=== PATIENT | female | born 1960 | race American Indian/Alaskan Native ===

== ENCOUNTER 2018-02-02 18:48 | Emergency (ER) | payer OTHER ==
[2018-02-02] MEDS ORDERED: FIORICET PO ONE (20:31)
[2018-02-02] MEDS ORDERED: KEPPRA 1,000 MG/NS 0.75% 100ML 1,000 MG/100 ML BAG IV ONE (20:31)
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
[2018-02-02 21:13] LABS: Basophils % (Auto) 0.6 % (0.0-1.8); Eosinophils # (Auto) 0.2 K/mm3 (0.0-0.4); Eosinophils % (Auto) 3.4 % (0.0-4.3); Hematocrit 38.4 % (30.3-42.9); Hemoglobin 12.8 gm/dl (10.1-14.3); Lymphocytes # (Auto) 1.6 K/mm3 (1.2-5.4); Lymphocytes % (Auto) 29.3 % (13.4-35.0); Mean Corpuscular HGB Conc 33 % (30-34); Mean Corpuscular Hemoglobin 29 pg (28-32); Mean Corpuscular Volume 88 fl (79-97); Monocytes # (Auto) 0.4 K/mm3 (0.0-0.8); Monocytes % (Auto) 8.1 % (0.0-7.3); Platelet Count 210 K/mm3 (140-440); Red Blood Count 4.36 M/mm3 (3.65-5.03); Red Cell Distribution Width 14.7 % (13.2-15.2)
[2018-02-02 21:31] LABS: Creatine Kinase MB 3.4 ng/mL (0.0-4.0)
[2018-02-02 21:33] LABS: BUN/Creatinine Ratio 13; Blood Urea Nitrogen 13 mg/dL (7-17); Calcium 9.1 mg/dL (8.4-10.2); Hemolysis Index 16
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
[2018-02-02 22:16] VITALS: BP 163/89
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
== END 2018-02-02 23:33 | disposition home or self-care (01) ==
LOC: ED 18:48
DX: S20.219A Contusion of unspecified front wall of thorax, initial encounter (principal); S00.83XA Contusion of other part of head, initial encounter; I10 Essential (primary) hypertension; S09.90XA Unspecified injury of head, initial encounter; I25.2 Old myocardial infarction; V49.49XA Driver injured in collision with other motor vehicles in traffic accident, initial encounter; Y93.89 Activity, other specified; Y92.89 Other specified places as the place of occurrence of the external cause; Y99.8 Other external cause status
CPT/HCPCS: 36415; 70450; 70486; 71275; 72125; 80048; 82550; 82553; 84484; 85025; 93005; 93010; 96374; 99284; J1953; Q9967

== ENCOUNTER 2021-05-24 11:27 | Inpatient (IN) | payer SELFPAY ==
--- NOTE | 2021-05-24 11:43 | Emergency Department Report ---
ED Neuro Deficit HPI - General Chief Complaint: Neuro Symptoms/Deficit Stated Complaint: RIGHT SIDED WEAKNESS Time Seen by Provider: 05/24/21 11:31 Source: EMS Mode of arrival: Stretcher Limitations: Other (aphasia) - History of Present Illness Initial Comments: Chief complaint: Possible stroke HPI: This is a 61-year-old female with history of CVA, hypertension, coronary artery disease, brain tumor resection 2009, seizure disorder who presents with r ight-sided weakness and aphasia. At 9:45 AM her daughter heard her fall. Daughter called 911. Patient is aphasic at this time. She takes Plavix. Daughter friend Aleena Lowery [phone] gave additional information. Prior to patient's arrival to ED, she called out to her daughter saying "I think I am having a stroke". Daughter called 911 immediately. Patient did not have a seizure prior to arrival according to daughter's report. Patient had stroke 10 years ago. -: Sudden, This morning (944) Location: speech, right arm, right leg Presenting Symptoms: Present: Weak/Paralyzed One Side History of same: No Place: home Severity: severe Quality: weak Improves With: none Worsens With: none On Anticoagulants: No Context: sudden onset Treatments Prior to Arrival: other (EMS arrival) - Related Data Home Medications: Home Medications Medication Instructions Recorded Confirmed Last Taken Atorvastatin [Lipitor] 40 mg PO DAILY 06/27/13 09/04/13 06/26/13 08:00 Clopidogrel [Plavix] 75 mg PO DAILY 06/27/13 09/04/13 06/26/13 08:00 Metoprolol [Lopressor TAB] 25 mg PO DAILY 06/27/13 09/04/13 06/26/13 08:00 lamoTRIgine [LaMICtal] 100 mg PO BID 06/27/13 09/04/13 06/26/13 21:00 levETIRAcetam [Keppra TAB] 1,500 mg PO BID 06/27/13 09/04/13 06/27/13 08:00 Aspirin [Aspirin BABY CHEW TAB] 81 mg PO QDAY 09/04/13 09/04/13 09/03/13 Previous Rx's Medication Instructions Recorded Last Taken Type HYDROcodone/APAP 5-325 [[place] 5 mg PO 4XD PRN #20 tablet 09/05/13 Unknown Rx 5-325 mg TAB] hydrALAZINE [Apresoline TAB] 50 mg PO TID #30 tablet 09/05/13 Unknown Rx lisinopriL [Zestril TAB] 5 mg PO QDAY #30 tablet 09/05/13 Unknown Rx lisinopriL [Zestril TAB] 5 mg PO QDAY #30 tablet 09/05/13 Unknown Rx Cyclobenzaprine [Flexeril] 10 mg PO TID PRN #14 tablet 02/02/18 Unknown Rx HYDROcodone/APAP 5-325 [[place] 1 - 2 each PO Q6HR PRN #10 tablet 02/02/18 Unknown Rx 5/325] Ibuprofen [Motrin 800 MG tab] 800 mg PO Q8HR PRN #20 tablet 02/02/18 Unknown Rx Allergies/Adverse Reactions: Allergies Allergy/AdvReac Type Severity Reaction Status Date / Time latex Allergy Rash Verified 09/04/13 07:35 ED Review of Systems ROS: Stated complaint: RIGHT SIDED WEAKNESS Other details as noted in HPI Comment: Unobtainable due to pts medical conditions (Aphasia) ED Past Medical Hx - Past Medical History Previous Medical History?: Yes Hx Hypertension: Yes Hx Heart Attack/AMI: Yes Hx Seizures: Yes Additional medical history: 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 defibrillator Left clavicle - Social History Smoking Status: Never Smoker Substance Use Type: None - Medications Home Medications: Home Medications Medication Instructions Recorded Confirmed Last Taken Type Atorvastatin [Lipitor] 40 mg PO DAILY 06/27/13 09/04/13 06/26/13 08:00 History Clopidogrel [Plavix] 75 mg PO DAILY 06/27/13 09/04/13 06/26/13 08:00 History Metoprolol [Lopressor TAB] 25 mg PO DAILY 06/27/13 09/04/13 06/26/13 08:00 History lamoTRIgine [LaMICtal] 100 mg PO BID 06/27/13 09/04/13 06/26/13 21:00 History levETIRAcetam [Keppra TAB] 1,500 mg PO BID 02/08/0509/04/13 06/27/13 08:00 History Aspirin [Aspirin BABY CHEW TAB] 81 mg PO QDAY 09/04/13 09/04/13 09/03/13 History HYDROcodone/APAP 5-325 [[place] 5 mg PO 4XD PRN #20 tablet 09/05/13 Unknown Rx 5-325 mg TAB] hydrALAZINE [Apresoline TAB] 50 mg PO TID #30 tablet 09/05/13 Unknown Rx lisinopriL [Zestril TAB] 5 mg PO QDAY #30 tablet 09/05/13 Unknown Rx lisinopriL [Zestril TAB] 5 mg PO QDAY #30 tablet 09/05/13 Unknown Rx Cyclobenzaprine [Flexeril] 10 mg PO TID PRN #14 tablet 02/02/18 Unknown Rx HYDROcodone/APAP 5-325 [[place] 1 - 2 each PO Q6HR PRN #10 tablet 02/02/18 Unknown Rx 5/325] Ibuprofen [Motrin 800 MG tab] 800 mg PO Q8HR PRN #20 tablet 02/02/18 Unknown Rx ED Neuro Physical Exam - General Limitations: Other (Aphasia) General appearance: alert, in no apparent distress Suspected Stroke: Yes - Head Head exam: Present: atraumatic, normocephalic - Eye Eye exam: Present: normal appearance - ENT ENT exam: Present: mucous membranes moist - Neck Neck exam: Present: normal inspection, full ROM - Respiratory Respiratory exam: Present: normal lung sounds bilaterally. Absent: respiratory distress, wheezes, rales - Cardiovascular Cardiovascular Exam: Present: regular rate, normal rhythm, normal heart sounds. Absent: systolic murmur, diastolic murmur, rubs, gallop - GI/Abdominal GI/Abdominal exam: Present: soft, normal bowel sounds. Absent: distended, tenderness, guarding, rebound - Extremities Exam Extremities exam: Present: normal inspection - Back Exam Back exam: Present: normal inspection - Neurological Exam Neurological exam: Present: alert, other (Aphasic) - NIHSS Assessment Interval: Baseline 1a. Level of Consciousness: arousable/minor stimuli 1b. LOC Questions: aphasic 1c. LOC Commands: performs tasks correctly 2. Best Gaze: normal 3. Visual: no visual loss 4. Facial Palsy: partial paralysis 5b. Motor Arm Right: no gravity effort 5a. Motor Arm Left: no drift 6a. Motor Leg Left: no drift 6b. Motor Leg Right: no gravity effort 7. Limb Ataxia: absent 8. Sensory: normal 9. Best Language: mute/global aphasia 10. Dysarthria: mute/anarrthric 11. Extinction/Inattention: no abnormality Total Score: 16 Stroke Severity: Moderate to Severe Stroke - Psychiatric Psychiatric exam: Present: flat affect - Skin Skin exam: Present: warm, dry, intact, normal color. Absent: rash ED Course Vital Signs 05/24/21 05/24/21 05/24/21 11:30 12:34 12:44 Temperature 98.8 F Pulse Rate 81 77 Pulse Rate [ 85 Right Arm] Respiratory 18 19 Rate Respiratory 16 Rate [Right Arm ] Blood Pressure 158/86 Blood Pressure 153/88 [Left] Blood Pressure 153/88 [Right Arm] O2 Sat by Pulse 98 93 Oximetry O2 Sat by Pulse 96 Oximetry [ Right Arm] 05/24/21 05/24/21 05/24/21 12:46 12:50 13:00 Temperature Pulse Rate 77 76 Pulse Rate [ 77 Right Arm] Respiratory 16 17 Rate Respiratory 16 Rate [Right Arm ] Blood Pressure 158/86 142/81 Blood Pressure [Left] Blood Pressure 155/104 [Right Arm] O2 Sat by Pulse 94 92 Oximetry O2 Sat by Pulse 92 Oximetry [ Right Arm] 05/24/21 05/24/21 05/24/21 13:04 13:16 13:30 Temperature Pulse Rate 70 70 Pulse Rate [ 80 Right Arm] Respiratory 15 22 Rate Respiratory 15 Rate [Right Arm ] Blood Pressure 62/31 75/39 Blood Pressure [Left] Blood Pressure 139/73 [Right Arm] O2 Sat by Pulse 96 98 Oximetry O2 Sat by Pulse 95 Oximetry [ Right Arm] 05/24/21 05/24/21 13:54 14:00 Temperature Pulse Rate 101 H 72 Pulse Rate [ 68 Right Arm] Respiratory 10 L Rate Respiratory 14 Rate [Right Arm ] Blood Pressure 133/74 128/76 Blood Pressure [Left] Blood Pressure 133/74 [Right Arm] O2 Sat by Pulse 99 Oximetry O2 Sat by Pulse 94 Oximetry [ Right Arm] - Reevaluation(s) Reevaluation #1: 05/24/21 12:48 I ordered TPA after receiving results of CT head revealing acute ischemia in the parietal lobe. Patient consented to the medication. I spoke in person with Aleena Lowery who consented to TPA. Daughter works for neurologist. She is well aware of the effects and risks of this medication. Reevaluation #2: 05/24/21 13:45 Profound hypotension during TPA administration. 70% of dose received. Patient did not have GI bleeding evident. Blood pressure improved after IVF NS bolus. CT head stat no obvious bleeding. On my examination. Reevaluation #3: 05/24/21 13:57 BP 133/84, patient is drowsy but arousable answering questions. - Consultations Consultation #1: 05/24/21 11:43 Has had extensive discussion with Dr. Galicia teleneurologist. Alonzo's paralysis is a consideration. tPA will be held until CT angiogram results are available. If there is no occlusion seen on CTA will treat patient for Alonzo's paralysis in lieu of acute CVA 05/24/21 11:44 - EJ/Peripheral Line Arm R Time Out Performed: Yes Indications: multiple IV sites needed, other (Antecubitus IV needed for CT angiogram emergently) Skin Cleansed in Sterile Fashion: Yes Size: 20 Dressing Placed: Tegaderm Patient Tolerated Procedure: well - Lab Data Result diagrams: 05/24/21 11:43 05/24/21 11:43 Lab Results 05/24/21 05/24/21 05/24/21 Range/Units 11:43 11:43 11:43 WBC 6.3 (4.5-11.0) K/mm3 RBC 4.59 (3.65-5.03) M/mm3 Hgb 13.1 (10.1-14.3) gm/dl Hct 40.5 (30.3-42.9) % MCV 88 (79-97) fl MCH 29 (28-32) pg MCHC 33 (30-34) % RDW 14.6 (13.2-15.2) % Plt Count 229 (140-440) K/mm3 Lymph % (Auto) 32.2 (13.4-35.0) % Evans % (Auto) 8.1 H (0.0-7.3) % Eos % (Auto) 2.1 (0.0-4.3) % Baso % (Auto) 0.5 (0.0-1.8) % Lymph # (Auto) 2.0 (1.2-5.4) K/mm3 Evans # (Auto) 0.5 (0.0-0.8) K/mm3 Eos # (Auto) 0.1 (0.0-0.4) K/mm3 Baso # (Auto) 0.0 (0.0-0.1) K/mm3 Seg Neutrophils % 57.1 (40.0-70.0) % Seg Neutrophils # 3.6 (1.8-7.7) K/mm3 PT 13.8 (12.2-14.9) Sec. INR 0.96 (0.87-1.13) APTT 28.6 (24.2-36.6) Sec. Thrombin Time 14.7 L (15.1-19.6) Sec. Sodium 135 L (137-145) mmol/L Potassium 3.6 (3.6-5.0) mmol/L Chloride 98.6 (98-107) mmol/L Carbon Dioxide 23 (22-30) mmol/L Anion Gap 17 mmol/L BUN 14 (7-17) mg/dL Creatinine 1.0 (0.6-1.2) mg/dL Estimated GFR > 60 ml/min BUN/Creatinine Ratio 14 % Glucose 125 H (65-100) mg/dL Calcium 9.8 (8.4-10.2) mg/dL Total Bilirubin 0.70 (0.1-1.2) mg/dL AST 18 (5-40) units/L ALT 40 (7-56) units/L Alkaline Phosphatase 103 (35-129) units/L Troponin T < 0.010 (0.00-0.029) ng/mL Total Protein 7.2 (6.3-8.2) g/dL Albumin 4.0 (3.9-5) g/dL Albumin/Globulin Ratio 1.3 % - EKG Data -: EKG Interpreted by Mn EKG shows normal: sinus rhythm, axis, intervals Rate: normal 05/24/21 14:12 EKG obtained 1350 NSR rate 70 bpm nl axis no ST elevation nonspecific T wave pattern - Radiology Data Radiology results: report reviewed Patient Name: ANA LOWERY Gender: Female Date of : 1960 Referring Provider: GAIL CRAFT Organization: [facility] Accession Number: [id number] Requested Date: May 24, 2021 11:31 Report Status: Final Requested Procedure: 1 Procedure Description: CT head/brain wo con Modality: CT Findings Reporting MD: Jorge More Dictation Time: May 24, 2021 10:56 Crew Clerk: Not available Search Developer Date: CT HEAD WITHOUT CONTRAST INDICATION / CLINICAL INFORMATION: CODE STROKE CALL REPORT [phone], LKW [id number], right side weakness, slurred speech, Hx of brain tumor. TECHNIQUE: All CT scans at this location are performed using CT dose reduction for ALARA by means of automated exposure control. COMPARISON: None available. FINDINGS: There is diffuse low attenuation within the left posterior parietal lobe low- attenuation suggesting possible stroke. No midline shift or mass effect. No acute hemorrhage is seen. Ventricles are normal in size. ADDITIONAL FINDINGS: None. IMPRESSION: 1. Diffuse low attenuation within left posterior parietal lobe suggesting acute ischemic change/stroke. CODE STROKE: Time of Communication (ELECTRONIC MAINTENANCE SUPERVISOR/CDT): 1055 Licensed Practitioner Receiving Report: Signer Name: Jorge More MD Signed: 05/24/2021 10:56 AM Workstation Name: [email or web address] [id number] Patient Name: ANA LOWERY Gender: Female Date of : 1960 Referring Provider: GAIL CRAFT Organization: [facility] Accession Number: [id number] Requested Date: May 24, 2021 11:31 Report Status: Final Requested Procedure: 1 Procedure Description: CT angio neck Modality: CT Findings Reporting MD: Tavo Morris Dictation Time: May 24, 2021 12:25 Crew Clerk: Not available Search Developer Date: CTA NECK WITH CONTRAST 05/24/2021 INDICATION / CLINICAL INFORMATION: stroke sx hx of brain tumor omni 350 100ml . COMPARISON: None. TECHNIQUE: Routine CTA of the neck is performed. 3-D/MIP reformats were postpr ocessed. Percentage stenosis is determined by direct quantitative measurements of diseased internal carotid artery diameter compared with normal distal internal carotid artery reference segments or by criteria similar to NASCET where applicable. All CT scans at this location are performed using CT dose reduction for ALARA by means of automated exposure control. CONTRAST: 100 ml of Omnipaque 350 FINDINGS: Carotid bifurcations: There is no evidence of carotid bifurcation stenosis Carotid arteries: No significant abnormality. Cervical vertebral arteries: No significant abnormality. Aortic arch: No significant abnormality. None. IMPRESSION: No significant abnormality. Signer Name: Tavo Morris MD Signed: 05/24/2021 12:25 PM Workstation Name: [id number] Patient Name: ANA LOWERY Gender: Female Date of : 1960 Referring Provider: GAIL CRAFT Organization: [facility] Accession Number: [id number] Requested Date: May 24, 2021 11:31 Report Status: Final Requested Procedure: 1 Procedure Description: CT angio head Modality: CT Findings Reporting MD: Tavo Morris Dictation Time: May 24, 2021 12:28 Crew Clerk: Not available Search Developer Date: CTA HEAD WITH CONTRAST 05/24/2021 HISTORY: stroke sx hx of brain tumor omni 350 100ml . COMPARISON: None. TECHNIQUE: All CT scans at this location are performed using CT dose reduction for ALARA by means of automated exposure control.. 3-D/MIP reformats postprocessed. Percentage stenosis is determined by direct quantitative measurements of diseased internal carotid artery diameter compared with normal distal internal carotid artery reference segments or by criteria similar to NASCET where applicable. CONTRAST: 100 ml of Omnipaque 350 FINDINGS: CTA HEAD: Intracranial vertebral arteries: No significant abnormality. Basilar artery: No significant abnormality. Posterior cerebral arteries: No significant abnormality. Intracranial internal carotid arteries: No significant abnormality. Anterior cerebral arteries: No significant abnormality. Middle cerebral arteries: No significant abnormality. Dural venous sinuses:Not optimally opacified. No significant abnormality. Additional findings: The patient is noted to have a left parietal craniotomy defect, with underlying cortical and subcortical encephalomalacia, presumably related to prior surgery and underlying abnormality. Appearance of the left parietal lobe is not changed when compared to an older exam from 02/02/2018. IMPRESSION: 1. No significant abnormality. Signer Name: Tavo Morris MD Signed: 05/24/2021 12:28 PM Workstation Name: [id number] Patient Name: ANA LOWERY Gender: Female Date of : 1960 Referring Provider: GAIL CRAFT Organization: [facility] Accession Number: [id number] Requested Date: May 24, 2021 13:35 Report Status: Final Requested Procedure: 1 Procedure Description: CT head/brain wo con Modality: CT Findings Reporting MD: Jorge More Dictation Time: May 24, 2021 12:55 Crew Clerk: Not available Search Developer Date: CT HEAD WITHOUT CONTRAST INDICATION / CLINICAL INFORMATION: tpa hypotension. TECHNIQUE: All CT scans at this location are performed using CT dose reduction for ALARA by means of automated exposure control. COMPARISON: None available. FINDINGS: There is a low-attenuation in the left parietal lobe could represent an infarct, uncertain age. No new change since prior examination. The vessels are still attenuated from recent contrast administration. No definite hemorrhage or midline shift is seen at this time. ADDITIONAL FINDINGS: None. IMPRESSION: 1. Area of low attenuation within left parietal lobe is again noted could represent ischemic given patient's symptoms. No acute hemorrhage is definitely seen. Signer Name: Jorge More MD Signed: 05/24/2021 12:55 PM Workstation Name: [id number] - Medical Decision Making 1. Acute CVA vs Alonzo's Paralysis. I discussed TPA with Dr. Galicia. Initially considered a candidate for TPA. Concern for seizure with limited hx. With daughter reporting no seizure, with patient's history and CT findings, Patient and daughter agreed for TPA therapy considering additional hx and presentation. Patient developed hypotension during TPA administration. . BP improved with NS IVF one liter. No angioedema. No urticaria. No rectal bleeding. 2. Acute Coronary Syndrome 30 minutes after hypotensive episode. Hx of CAD, EKG without ST elevation Patient admitted to ICU in fair condition - Thrombolytic Inclusion/Exclusion Thrombolytic Inclusion Criteria: Ischemic Stroke Onset< 3h, NIH Stroke Scale Def icit, Negative CT Scan for ICH, Age 18 or Older, Glucose of 50-400mg/dl Critical Care Time: Yes Critical care time in (mins) excluding proc time.: 100 Critical care attestation.: If time is entered above; I have spent that time in minutes in the direct care of this critically ill patient, excluding procedure time. 100 minutes of critical care time excluding procedures were used in the care of the patient. I came immediately to the bedside upon patient's arrival. I obtained history from EMS at the bedside. I discussed treatment plan with the nursing team members. I reviewed electronic record. I kept the family members informed. Patient required multiple interventions and reassessments. ED Disposition Clinical Impression: Acute CVA (cerebrovascular accident), Received intravenous tissue plasminogen activator (tPA) in emergency department Disposition: ADMITTED INPATIENT Is pt being admited?: Yes Does the pt Need Aspirin: No Condition: Stable
[2021-05-24 11:57] LABS: Basophils % (Auto) 0.5 % (0.0-1.8); Eosinophils # (Auto) 0.1 K/mm3 (0.0-0.4); Eosinophils % (Auto) 2.1 % (0.0-4.3); Hematocrit 40.5 % (30.3-42.9); Hemoglobin 13.1 gm/dl (10.1-14.3); Lymphocytes % (Auto) 32.2 % (13.4-35.0); Mean Corpuscular HGB Conc 33 % (30-34); Mean Corpuscular Volume 88 fl (79-97); Monocytes # (Auto) 0.5 K/mm3 (0.0-0.8); Monocytes % (Auto) 8.1 % (0.0-7.3); Platelet Count 229 K/mm3 (140-440); Red Blood Count 4.59 M/mm3 (3.65-5.03); Red Cell Distribution Width 14.6 % (13.2-15.2)
--- NOTE | 2021-05-24 12:01 | Cat Scan Report ---
CT HEAD WITHOUT CONTRAST INDICATION / CLINICAL INFORMATION: CODE STROKE CALL REPORT [phone], LKW 0945, right side weakness, slurred speech, Hx of brain tumor. TECHNIQUE: All CT scans at this location are performed using CT dose reduction for ALARA by means of automated e xposure control. COMPARISON: None available. FINDINGS: There is diffuse low attenuation within the left posterior parietal lobe low-attenuation suggesting p ossible stroke. No midline shift or mass effect. No acute hemorrhage is seen. Ventricles are normal i n size. ADDITIONAL FINDINGS: None. IMPRESSION: 1. Diffuse low attenuation within left posterior parietal lobe suggesting acute ischemic change/strok e. CODE STROKE: Time of Communication (SCRIPT WRITER/CDT): 8922 Licensed Practitioner Receiving Report: Signer Name: Jorge More MD Signed: 05/24/2021 11:56 AM Workstation Name: [id number]
[2021-05-24 12:06] LABS: INR 0.96 (0.87-1.13); Partial Thromboplastin Time 28.6 Sec. (24.2-36.6)
[2021-05-24 12:07] LABS: Thrombin Time 14.7 Sec. (15.1-19.6)
[2021-05-24 12:22] LABS: Alanine Aminotransferase 40 units/L (7-56); BUN/Creatinine Ratio 14; Blood Urea Nitrogen 14 mg/dL (7-17); Calcium 9.8 mg/dL (8.4-10.2); Hemolysis Index 3
--- NOTE | 2021-05-24 12:26 | Consultation ---
History of Present Illness History of present illness: [place] [facility] Consult Note # Demographics Consult Type: Acute Stroke Level 1 (0-4.5 hrs) Patient Location: Emergency Room First Name: Renuka Last Name: Sebastián Age: 61 Gender: Female Facility: [facility] Time of Initial Page ( Time): 05/24/2021, 11:09 Time of Return Call ( Time): 05/24/2021, 11:09 # HPI History: 61 year-old female with prior brain tumor resection and epilepsy presents with right-sided weakness. Symptoms began at 945 AM. # Scores Time of exam and NIHSS ( Time): 05/24/2021, 11:26 Level of Consciousness 1a: [0] = Alert; keenly responsive LOC Questions 1b: [2] = Answers neither correctly LOC Commands 1c: [1] = Performs one correctly Best Gaze 2: [0] = Normal Visual 3: [0] = No visual loss Facial Palsy 4: [1] = Minor paralysis Motor Arm Left 5a: [1] = Drift Motor Arm Right 5b: [3] = No effort against gravity Motor Leg Left 6a: [1] = Drift Motor Leg Right 6b: [2] = Some effort against gravity Limb Ataxia 7: [0] = Absent Sensory 8: [0] = Normal Best Language 9: [1] = [id number] aphasia Dysarthria 10: [1] = Ziig-te-gaawoljd dysarthria Extinction and Inattention 11: [0] = No abnormality NIHSS Total: 13 # Exam Vitals: vital signs reviewed # PMH-FH-SH Past Medical History: brain tumor Medications: plavix # Data Head CT: preliminarily reviewed by me, please refer to radiology read for official reading left frontal/parietal encephalomalacia # Assessment Impression: Right-sided weakness - given history of brain tumor resection and seizures with CT showing left frontal-parietal encephalomalacia, suspect this is a seizure with post-ictal weakness (Alonzo's paralysis), stroke cannot be excluded # Plan Thrombolytic/Intervention: NOT IV Thrombolysis or IA Intervention candidate Thrombolytic Exclusion: brain tumor with encephalomalacia in area explaining symptoms Intraarterial Exclusion: CTA pending Imaging: (urgency: STAT): CT Angiogram Head and CT Angiogram Neck AND call back with results if abnormal Imaging: (urgency: routine): MRI Brain with AND without contrast Therapy/Evaluation: NPO until swallow evaluation PT/OT evaluation speech/swallow consultation Other: permissive hypertension telemetry monitoring seizure precautions I have discussed my recommendations with the referring provider Disposition: observation Medications and Allergies Allergies Allergy/AdvReac Type Severity Reaction Status Date / Time latex Allergy Rash Verified 09/04/13 07:35 Home Medications Medication Instructions Recorded Confirmed Last Taken Type Atorvastatin [Lipitor] 40 mg PO DAILY 06/27/13 09/04/13 06/26/13 08:00 History Clopidogrel [Plavix] 75 mg PO DAILY 06/27/13 09/04/13 06/26/13 08:00 History Metoprolol [Lopressor TAB] 25 mg PO DAILY 06/27/13 09/04/13 06/26/13 08:00 History lamoTRIgine [LaMICtal] 100 mg PO BID 06/27/13 09/04/13 06/26/13 21:00 History levETIRAcetam [Keppra TAB] 1,500 mg PO BID 06/27/13 09/04/13 06/27/13 08:00 History Aspirin [Aspirin BABY CHEW TAB] 81 mg PO QDAY 09/04/13 09/04/13 09/03/13 History HYDROcodone/APAP 5-325 [[place] 5 mg PO 4XD PRN #20 tablet 09/05/13 Unknown Rx 5-325 mg TAB] hydrALAZINE [Apresoline TAB] 50 mg PO TID #30 tablet 09/05/13 Unknown Rx lisinopriL [Zestril TAB] 5 mg PO QDAY #30 tablet 09/05/13 Unknown Rx lisinopriL [Zestril TAB] 5 mg PO QDAY #30 tablet 09/05/13 Unknown Rx Cyclobenzaprine [Flexeril] 10 mg PO TID PRN #14 tablet 02/02/18 Unknown Rx HYDROcodone/APAP 5-325 [[place] 1 - 2 each PO Q6HR PRN #10 tablet 02/02/18 Unknown Rx 5/325] Ibuprofen [Motrin 800 MG tab] 800 mg PO Q8HR PRN #20 tablet 02/02/18 Unknown Rx Results - Laboratory Findings CBC and BMP: 05/24/21 11:43 05/24/21 11:43 Abnormal Lab Findings: Abnormal Labs 05/24/21 05/24/21 05/24/21 11:43 11:43 11:43 [place] % (Auto) 8.1 H Thrombin Time 14.7 L Sodium 135 L Glucose 125 H
[2021-05-24] MEDS ORDERED: SODIUM CHLORIDE 0.9% 50 ML IVPB IV ONE (12:27)
[2021-05-24] MEDS ORDERED: ALTEPLASE 100 MG INJ KIT IV ONE ×2 (12:27)
[2021-05-24] MEDS ORDERED: ALTEPLASE 100 MG INJ KIT ONE (12:28)
[2021-05-24] MEDS ORDERED: ONDANSETRON 4 MG/2 ML INJ ONE ×2 (13:13→18:52)
[2021-05-24] MEDS ORDERED: ONDANSETRON 4 MG/2 ML INJ IV ONE ×2 (13:14→16:29)
[2021-05-24] MEDS ORDERED: SODIUM CHLORIDE 0.9% 1000 ML 1,000 ML ONE ×2 (13:20→13:21)
--- NOTE | 2021-05-24 13:30 | Cat Scan Report ---
CTA NECK WITH CONTRAST 05/24/2021 INDICATION / CLINICAL INFORMATION: stroke sx hx of brain tumor omni 350 100ml . COMPARISON: None. TECHNIQUE: Routine CTA of the neck is performed. 3-D/MIP reformats were postprocessed. Percentage st enosis is determined by direct quantitative measurements of diseased internal carotid artery diameter compared with normal distal internal carotid artery reference segments or by criteria similar to SINDI CET where applicable. All CT scans at this location are performed using CT dose reduction for ALARA b y means of automated exposure control. CONTRAST: 100 ml of Omnipaque 350 FINDINGS: Carotid bifurcations: There is no evidence of carotid bifurcation stenosis Carotid arteries: No significant abnormality. Cervical vertebral arteries: No significant abnormality. Aortic arch: No significant abnormality. None. IMPRESSION: No significant abnormality. Signer Name: Tavo Morris MD Signed: 05/24/2021 1:25 PM Workstation Name: [id number]
--- NOTE | 2021-05-24 13:32 | Cat Scan Report ---
CTA HEAD WITH CONTRAST 05/24/2021 HISTORY: stroke sx hx of brain tumor omni 350 100ml . COMPARISON: None. TECHNIQUE: All CT scans at this location are performed using CT dose reduction for ALARA by means of automated exposure control.. 3-D/MIP reformats postprocessed. Percentage stenosis is determined by d irect quantitative measurements of diseased internal carotid artery diameter compared with normal dis tomeka internal carotid artery reference segments or by criteria similar to NASCET where applicable. CONTRAST: 100 ml of Omnipaque 350 FINDINGS: CTA HEAD: Intracranial vertebral arteries: No significant abnormality. Basilar artery: No significant abnormality. Posterior cerebral arteries: No significant abnormality. Intracranial internal carotid arteries: No significant abnormality. Anterior cerebral arteries: No significant abnormality. Middle cerebral arteries: No significant abnormality. Dural venous sinuses:Not optimally opacified. No significant abnormality. Additional findings: The patient is noted to have a left parietal craniotomy defect, with underlying cortical and subcortical encephalomalacia, presumably related to prior surgery and underlying abnorma lity. Appearance of the left parietal lobe is not changed when compared to an older exam from 02/03/20 18. IMPRESSION: 1. No significant abnormality. Signer Name: Tavo Morris MD Signed: 05/24/2021 1:28 PM Workstation Name: [id number]
--- NOTE | 2021-05-24 13:59 | Cat Scan Report ---
CT HEAD WITHOUT CONTRAST INDICATION / CLINICAL INFORMATION: tpa hypotension. TECHNIQUE: All CT scans at this location are performed using CT dose reduction for ALARA by means of automated e xposure control. COMPARISON: None available. FINDINGS: There is a low-attenuation in the left parietal lobe could represent an infarct, uncertain age. No ne w change since prior examination. The vessels are still attenuated from recent contrast administratio n. No definite hemorrhage or midline shift is seen at this time. ADDITIONAL FINDINGS: None. IMPRESSION: 1. Area of low attenuation within left parietal lobe is again noted could represent ischemic given pa tient's symptoms. No acute hemorrhage is definitely seen. Signer Name: Jorge More MD Signed: 05/24/2021 1:55 PM Workstation Name: [id number]
[2021-05-24] MEDS ORDERED: levETIRAcetam 1000 MG/NS 0.75% 1,000 MG/100 ML BAG IV ONE (14:11)
[2021-05-24] MEDS ORDERED: SODIUM CHLORIDE 0.9% 1000 ML 1,000 ML IV ONE (14:27)
[2021-05-24 14:53] LABS: Basophils % (Auto) 0.3 % (0.0-1.8); Eosinophils # (Auto) 0.1 K/mm3 (0.0-0.4); Eosinophils % (Auto) 1.3 % (0.0-4.3); Hematocrit 41.7 % (30.3-42.9); Hemoglobin 13.1 gm/dl (10.1-14.3); Mean Corpuscular HGB Conc 32 % (30-34); Mean Corpuscular Volume 91 fl (79-97); Monocytes # (Auto) 0.7 K/mm3 (0.0-0.8); Monocytes % (Auto) 7.5 % (0.0-7.3); Platelet Count 205 K/mm3 (140-440); Red Blood Count 4.57 M/mm3 (3.65-5.03)
[2021-05-24] MEDS ORDERED: MORPHINE 4 MG/1 ML INJ IV ONE (16:29)
[2021-05-24] MEDS ORDERED: MORPHINE 4 MG/1 ML INJ ONE (18:52)
[2021-05-24] MEDS ORDERED: HYDROmorphone 1 MG/1 ML INJ IV PRN (21:19)
--- NOTE | 2021-05-24 21:34 | Event Note ---
Date: 05/24/21 Patient reevaluated Patient is alert and oriented No focal deficits No dysarthria Patient able to walk normally All the labs are normal Patient had excessive alcohol yesterday Discharge diagnoses Patient counseled about his alcohol intake EtOH dependence
[2021-05-24] MEDS ORDERED: ONDANSETRON 4 MG/2 ML INJ IV PRN (23:16)
[2021-05-24] MEDS ORDERED: oxyCODONE /ACETAMINOPHEN 5-325MG TAB PO PRN (23:20)
[2021-05-24] MEDS ORDERED: METOCLOPRAMIDE 10 MG/2 ML INJ IV PRN (23:20)
[2021-05-24] MEDS ORDERED: SODIUM CHLORIDE 0.9% 1000 ML 1,000 ML IV SCH (23:30)
[2021-05-25 04:49] LABS: Basophils % (Auto) 0.2 % (0.0-1.8); Eosinophils % (Auto) 0.5 % (0.0-4.3); Hematocrit 41.1 % (30.3-42.9); Hemoglobin 12.9 gm/dl (10.1-14.3); Lymphocytes # (Auto) 1.7 K/mm3 (1.2-5.4); Lymphocytes % (Auto) 22.5 % (13.4-35.0); Mean Corpuscular HGB Conc 31 % (30-34); Mean Corpuscular Volume 92 fl (79-97); Monocytes # (Auto) 0.5 K/mm3 (0.0-0.8); Monocytes % (Auto) 6.9 % (0.0-7.3); Platelet Count 240 K/mm3 (140-440); Red Blood Count 4.49 M/mm3 (3.65-5.03); Red Cell Distribution Width 14.7 % (13.2-15.2)
[2021-05-25 05:06] LABS: Albumin 3.8 g/dL (3.9-5); Calcium 9.2 mg/dL (8.4-10.2)
--- NOTE | 2021-05-25 08:35 | History and Physical Report ---
History of Present Illness Date of examination: 05/24/21 Date of admission: 05/24/21 14:15 Chief complaint: Right-sided weakness since 9:30 AM History of present illness: 61-year-old female with history of cerebrovascular accident in the past, hypertension, coronary artery disease, status post brain resection tumor and seizure disorder comes in for right-sided weakness and aphasia history at 9:44 AM. Daughter noticed her fall when she was trying to get up and patient was also aphasic. Patient called her daughter saying that she is probably having a stroke. Daughter called 911 immediately. No seizures. The patient in the emergency room patient was given TPA as patient was in the window. Of acute stroke protocol. For TPA right-sided weakness has improved to some extent after the TPA. Initially the power was 5/5 power Past medical history --Htn --CAD --Seizures --HLD - Surgical History --Past Surgical History?: Yes --Coronary Stent: Yes (2) --Open Heart Surgery: Yes (bypass last week 08/15/13) --Additional Surgical History: tubal, benign tumor removed,. defibrillator Left clavicle - Social History Smoking Status: Never Smoker Substance Use Type: None - Medications Home Medications: Home Medications Medication Instructions Recorded Confirmed Last Taken Type Atorvastatin [Lipitor] 40 mg PO DAILY 06/27/13 09/04/13 06/26/13 08:00 History Clopidogrel [Plavix] 75 mg PO DAILY 06/27/13 09/04/13 06/26/13 08:00 History Metoprolol [Lopressor TAB] 25 mg PO DAILY 06/27/13 09/04/13 06/26/13 08:00 History lamoTRIgine [LaMICtal] 100 mg PO BID 06/27/13 09/04/13 06/26/13 21:00 History levETIRAcetam [Keppra TAB] 1,500 mg PO BID 06/27/13 09/04/13 06/27/13 08:00 History Aspirin [Aspirin BABY CHEW TAB] 81 mg PO QDAY 09/04/13 09/04/13 09/03/13 History HYDROcodone/APAP 5-325 [[place] 5 mg PO 4XD PRN #20 tablet 09/05/13 Unknown Rx 5-325 mg TAB] hydrALAZINE [Apresoline TAB] 50 mg PO TID #30 tablet 09/05/13 Unknown Rx lisinopriL [Zestril TAB] 5 mg PO QDAY #30 tablet 09/05/13 Unknown Rx lisinopriL [Zestril TAB] 5 mg PO QDAY #30 tablet 09/05/13 Unknown Rx Cyclobenzaprine [Flexeril] 10 mg PO TID PRN #14 tablet 02/02/18 Unknown Rx HYDROcodone/APAP 5-325 [[place] 1 - 2 each PO Q6HR PRN #10 tablet 02/02/18 Unknown Rx 5/325] Ibuprofen [Motrin 800 MG tab] 800 mg PO Q8HR PRN #20 tablet 02/02/18 Unknown Rx Review of systems ROS Constitutional no weight loss or weight gain no fever or chills HEENT no sore throat no post nasal drip no diplopia Neck no neck stiffness no lymph gland enlargement Chest and lungs no shortness of breath cough or wheezing CVS no chest pain no diaphoresis no palpitations GI no nausea no vomiting no diarrhea Genitourinary system no dysuria no flank pain Musculoskeletal system no muscle pains no joint pains [employer] right-sided weakness-initially 0/5 power improved to 2/5 power after TPA Skin no rash no itching Psychiatric no depression no homicidal or suicidal tendencies Hematologic no lymphedema or bruising Endocrine no polydipsia no polyuria no cold intolerance no heat intolerance Medications and Allergies Allergies Allergy/AdvReac Type Severity Reaction Status Date / Time latex Allergy Rash Verified 09/04/13 07:35 Home Medications Medication Instructions Recorded Confirmed Last Taken Type Atorvastatin [Lipitor] 40 mg PO DAILY 06/27/13 09/04/13 06/26/13 08:00 History Clopidogrel [Plavix] 75 mg PO DAILY 06/27/13 09/04/13 06/26/13 08:00 History Metoprolol [Lopressor TAB] 25 mg PO DAILY 06/27/13 09/04/13 06/26/13 08:00 History lamoTRIgine [LaMICtal] 100 mg PO BID 06/27/13 09/04/13 06/26/13 21:00 History levETIRAcetam [Keppra TAB] 1,500 mg PO BID 06/27/13 09/04/13 06/27/13 08:00 History Aspirin [Aspirin BABY CHEW TAB] 81 mg PO QDAY 09/04/13 09/04/13 09/03/13 History HYDROcodone/APAP 5-325 [[place] 5 mg PO 4XD PRN #20 tablet 09/05/13 Unknown Rx 5-325 mg TAB] hydrALAZINE [Apresoline TAB] 50 mg PO TID #30 tablet 09/05/13 Unknown Rx lisinopriL [Zestril TAB] 5 mg PO QDAY #30 tablet 09/05/13 Unknown Rx lisinopriL [Zestril TAB] 5 mg PO QDAY #30 tablet 09/05/13 Unknown Rx Cyclobenzaprine [Flexeril] 10 mg PO TID PRN #14 tablet 02/02/18 Unknown Rx HYDROcodone/APAP 5-325 [[place] 1 - 2 each PO Q6HR PRN #10 tablet 02/02/18 Unknown Rx 5/325] Ibuprofen [Motrin 800 MG tab] 800 mg PO Q8HR PRN #20 tablet 02/02/18 Unknown Rx Active Meds: Active Medications Acetaminophen (Acetaminophen 325 Mg Tab) 650 mg PO Q4H PRN PRN Reason: Pain MILD(1-3)/Fever >100.5/TRIANA Famotidine (Famotidine 20 Mg Tab) 20 mg PO BID KESHIA Hydromorphone HCl (Hydromorphone 1 Mg/1 Ml Inj) 0.5 mg IV Q3H PRN PRN Reason: Pain , Severe (7-10) Last Admin: 05/25/21 00:35 Dose: 0.5 mg Documented by: Sodium Chloride (Nacl 0.9% 1000 Ml) 1,000 mls @ 75 mls/hr IV DIRECT KESHIA Stop: 05/25/21 10:05 Metoclopramide HCl (Metoclopramide 10 Mg/2 Ml Inj) 10 mg IV Q6H PRN PRN Reason: Nausea And Vomiting Ondansetron HCl (Ondansetron 4 Mg/2 Ml Inj) 4 mg IV Q8H PRN PRN Reason: Nausea And Vomiting Last Admin: 05/25/21 00:36 Dose: 4 mg Documented by: Oxycodone/Acetaminophen (Oxycodone /Acetaminophen 5-325mg Tab) 1 tab PO Q6H PRN PRN Reason: Pain, Moderate (4-6) Sodium Chloride (Sodium Chloride 0.9% 10 Ml Flush Syringe) 10 ml IV BID [facility] Sodium Chloride (Sodium Chloride 0.9% 10 Ml Flush Syringe) 10 ml IV PRN PRN PRN Reason: LINE FLUSH Last Admin: 05/25/21 00:35 Dose: 10 ml Documented by: Exam - Constitutional Vitals: Temp Pulse Resp BP Pulse Ox 98.8 F 76 12 96/50 97 05/24/21 11:30 05/25/21 06:45 05/25/21 06:45 05/25/21 06:45 05/25/21 06:45 General appearance: Present: no acute distress, well-nourished - EENT Eyes: Present: PERRL ENT: hearing intact, clear oral mucosa - Neck Neck: Present: supple, normal ROM - Respiratory Respiratory effort: normal Respiratory: bilateral: CTA - Cardiovascular Heart rate: 78 Rhythm: regular Heart Sounds: Present: S1 & S2. Absent: rub, click - Extremities Extremities: pulses symmetrical, No edema, abnormal (Right upper extremity and right lower extremity weakness, 2+/5 power) Peripheral Pulses: within normal limits - Abdominal General gastrointestinal: Present: soft, non-tender, non-distended, normal bowel sounds Female genitourinary: Present: normal - Integumentary Integumentary: Present: clear, warm, dry - Musculoskeletal Musculoskeletal: gait normal, strength equal bilaterally - Psychiatric Psychiatric: appropriate mood/affect, intact judgment & insight - Neurologic Neurologic: CNII-XII intact, focal deficits (Right hemiplegia, right upper and right lower extremity weakness 2/5 power), moves all extremities - Allied Health Allied health notes reviewed: nursing, case management HEART Score - HEART Score Troponin: Troponin T < 0.010 ng/mL (0.00-0.029) 05/24/21 14:22 Results - Labs CBC & Chem 7: 05/25/21 04:19 05/25/21 04:19 Labs: Laboratory Last Values WBC 7.4 K/mm3 (4.5-11.0) 05/25/21 04:19 RBC 4.49 M/mm3 (3.65-5.03) 05/25/21 04:19 Hgb 12.9 gm/dl (10.1-14.3) 05/25/21 04:19 Hct 41.1 % (30.3-42.9) 05/25/21 04:19 MCV 92 fl (79-97) 05/25/21 04:19 MCH 29 pg (28-32) 05/25/21 04:19 MCHC 31 % (30-34) 05/25/21 04:19 RDW 14.7 % (13.2-15.2) 05/25/21 04:19 Plt Count 240 K/mm3 (140-440) 05/25/21 04:19 Lymph % (Auto) 22.5 % (13.4-35.0) 05/25/21 04:19 [place] % (Auto) 6.9 % (0.0-7.3) 05/25/21 04:19 Eos % (Auto) 0.5 % (0.0-4.3) 05/25/21 04:19 Baso % (Auto) 0.2 % (0.0-1.8) 05/25/21 04:19 Lymph # (Auto) 1.7 K/mm3 (1.2-5.4) 05/25/21 04:19 [place] # (Auto) 0.5 K/mm3 (0.0-0.8) 05/25/21 04:19 Eos # (Auto) 0.0 K/mm3 (0.0-0.4) 05/25/21 04:19 Baso # (Auto) 0.0 K/mm3 (0.0-0.1) 05/25/21 04:19 Seg Neutrophils % 69.9 % (40.0-70.0) 05/25/21 04:19 Seg Neutrophils # 5.2 K/mm3 (1.8-7.7) 05/25/21 04:19 PT 13.8 Sec. (12.2-14.9) 05/24/21 11:43 INR 0.96 (0.87-1.13) 05/24/21 11:43 APTT 28.6 Sec. (24.2-36.6) 05/24/21 11:43 Thrombin Time 14.7 Sec. (15.1-19.6) L 05/24/21 11:43 Sodium 138 mmol/L (137-145) 05/25/21 04:19 Potassium 4.0 mmol/L (3.6-5.0) 05/25/21 04:19 Chloride 100.1 mmol/L (98-107) 05/25/21 04:19 Carbon Dioxide 21 mmol/L (22-30) L 05/25/21 04:19 Anion Gap 21 mmol/L 05/25/21 04:19 BUN 19 mg/dL (7-17) H 05/25/21 04:19 Creatinine 1.9 mg/dL (0.6-1.2) H D 05/25/21 04:19 Estimated GFR 32 ml/min 05/25/21 04:19 BUN/Creatinine Ratio 10 % 05/25/21 04:19 Glucose 142 mg/dL (65-100) H 05/25/21 04:19 Calcium 9.2 mg/dL (8.4-10.2) 05/25/21 04:19 Total Bilirubin 0.70 mg/dL (0.1-1.2) 05/25/21 04:19 AST 16 units/L (5-40) 05/25/21 04:19 ALT 32 units/L (7-56) 05/25/21 04:19 Alkaline Phosphatase 90 units/L (35-129) 05/25/21 04:19 Troponin T < 0.010 ng/mL (0.00-0.029) 05/24/21 14:22 Total Protein 7.5 g/dL (6.3-8.2) 05/25/21 04:19 Albumin 3.8 g/dL (3.9-5) L 05/25/21 04:19 Albumin/Globulin Ratio 1.0 % 05/25/21 04:19 Short CBC 05/24/21 05/24/21 05/25/21 Range/Units 11:43 14:22 04:19 WBC 6.3 9.4 7.4 (4.5-11.0) K/mm3 Hgb 13.1 13.1 12.9 (10.1-14.3) gm/dl Hct 40.5 41.7 41.1 (30.3-42.9) % Plt Count 229 205 240 (140-440) K/mm3 BMP 05/24/21 05/25/21 11:43 04:19 Sodium 135 L 138 Potassium 3.6 4.0 Chloride 98.6 100.1 Carbon Dioxide 23 21 L BUN 14 19 H Creatinine 1.0 1.9 H D Glucose 125 H 142 H Calcium 9.8 9.2 Cardiac Enzymes 05/24/21 05/24/21 Range/Units 11:43 14:22 Troponin T < 0.010 < 0.010 (0.00-0.029) ng/mL Liver Function 05/24/21 05/25/21 Range/Units 11:43 04:19 Total Bilirubin 0.70 0.70 (0.1-1.2) mg/dL AST 18 16 (5-40) units/L ALT 40 32 (7-56) units/L Alkaline Phosphatase 103 90 (35-129) units/L Albumin 4.0 3.8 L (3.9-5) g/dL - Imaging and Cardiology Chest x-ray: report reviewed CT Scan - head: report reviewed Imaging and Cardiology: Head CT Diffuse low-attenuation within the left posterior parietal lobe suggesting acute ischemic change/stroke Neck CTA No significant abnormality Head CT no significant abnormality Repeat CTof head Area of low-attenuation of the left parietal lobe is again noted could represent ischemic given patient's symptoms. No acute hemorrhage is definitely seen. Assessment and Plan Advance Directives: Yes (Full code) VTE prophylaxis?: Chemical Plan of care discussed with patient/family: Yes - Patient Problems (1) Acute CVA (cerebrovascular accident) Current Visit: Yes Status: Acute Plan to address problem: Patient is status post CVA There is improvement from 0/5 power to 2+/5 power Admit to ICU (2) Received intravenous tissue plasminogen activator (tPA) in emergency department Current Visit: Yes Status: Acute Plan to address problem: Patient received TPA in the emergency room No complications. There is increased bruising for the venipuncture sites (3) Coronary artery disease Current Visit: Yes Status: Chronic Qualifiers: Coronary Disease-Associated Artery/Lesion type: three affiliated artery Associated angina: without angina Plan to address problem: Continue Plavix (4) Discharge planning issues Current Visit: No Status: Acute (5) HTN (hypertension) Current Visit: No Status: Chronic Qualifiers: Hypertension type: primary hypertension Qualified Code(s): I10 - Essential (primary) hypertension Plan to address problem: Continue antihypertensives and adjust medications (6) Seizure disorder Current Visit: No Status: Chronic Plan to address problem: Continue Keppra (7) DVT prophylaxis Current Visit: Yes Status: Acute Plan to address problem: Patient had TPA No heparin till tomorrow (8) Advance care planning Current Visit: Yes Status: Acute Plan to address problem: Patient education conducted, care plan discussed, diagnosis discussed, patient is full code, patient acknowledges understanding and agreement with care plan. +30 minutes.
[2021-05-25] MEDS: FAMOTIDINE 20 MG TAB PO SCH ×3 (09:25→22:58)
--- NOTE | 2021-05-25 18:15 | Electrocardiograph Report ---
[facility] Test Date: 2021-05-24 Test Time: 13:50:47 Pat Name: ANA AGUSTIN Department: Room: A459 Gender: F Global Marketing Specialist: MARICARMEN : 1960 Requested By: GAIL CRAFT Order Number: [id number] Reading MD: Angel Sanders Measurements Intervals [place] Rate: 69 P: 2 NV: 179 QRS: -15 QRSD: 92 T: 84 QT: 370 QTc: 398 Interpretive Statements Sinus rhythm Nonspecific T abnrm, anterolateral leads No previous ECG available for comparison Electronically Signed On 05-25-2021 18:14:42 EST by Angel Sanders
--- NOTE | 2021-05-26 01:16 | Progress Note ---
Assessment and Plan - Patient Problems (1) Acute CVA (cerebrovascular accident) Current Visit: Yes Status: Acute Plan to address problem: Patient is status post CVA There is improvement from 0/5 power to 2+/5 power Admit to ICU (2) Received intravenous tissue plasminogen activator (tPA) in emergency department Current Visit: Yes Status: Acute Plan to address problem: Patient received TPA in the emergency room No complications. There is increased bruising for the venipuncture sites (3) Coronary artery disease Current Visit: Yes Status: Chronic Qualifiers: Coronary Disease-Associated Artery/Lesion type: [place] artery Associated angina: without angina Plan to address problem: Continue Plavix (4) Discharge planning issues Current Visit: No Status: Acute (5) HTN (hypertension) Current Visit: No Status: Chronic Qualifiers: Hypertension type: primary hypertension Qualified Code(s): I10 - Essential (primary) hypertension Plan to address problem: Continue antihypertensives and adjust medications (6) Seizure disorder Current Visit: No Status: Chronic Plan to address problem: Continue Keppra (7) DVT prophylaxis Current Visit: Yes Status: Acute Plan to address problem: Patient had TPA No heparin till tomorrow (8) Advance care planning Current Visit: Yes Status: Acute Plan to address problem: Patient education conducted, care plan discussed, diagnosis discussed, patient is full code, patient acknowledges understanding and agreement with care plan. +30 minutes. Subjective Date of service: 05/25/21 Objective - Constitutional Vitals: Vital Signs - 12hr 05/25/21 05/25/21 05/25/21 13:21 13:31 13:41 Temperature Pulse Rate 78 66 79 Respiratory 12 11 L 14 Rate Blood Pressure 96/58 96/58 96/58 O2 Sat by Pulse 99 99 97 Oximetry 05/25/21 05/25/21 05/25/21 13:51 14:01 14:11 Temperature Pulse Rate 80 69 72 Respiratory 17 12 12 Rate Blood Pressure 96/58 101/62 101/62 O2 Sat by Pulse 98 98 96 Oximetry 05/25/21 05/25/21 05/25/21 14:21 14:31 14:41 Temperature Pulse Rate 67 69 67 Respiratory 12 12 11 L Rate Blood Pressure 101/62 101/62 101/62 O2 Sat by Pulse 96 96 98 Oximetry 05/25/21 05/25/21 05/25/21 14:51 15:00 15:11 Temperature Pulse Rate 67 78 70 Respiratory 10 L 13 13 Rate Blood Pressure 101/62 95/73 95/73 O2 Sat by Pulse 97 98 97 Oximetry 05/25/21 05/25/21 05/25/21 15:21 15:31 15:41 Temperature Pulse Rate 69 70 71 Respiratory 21 13 15 Rate Blood Pressure 95/73 95/73 95/73 O2 Sat by Pulse 97 96 96 Oximetry 05/25/21 05/25/21 05/25/21 15:51 16:01 16:11 Temperature Pulse Rate 72 70 76 Respiratory 13 11 L 14 Rate Blood Pressure 95/73 109/62 109/62 O2 Sat by Pulse 96 96 97 Oximetry 05/25/21 05/25/21 05/25/21 16:21 16:31 16:41 Temperature Pulse Rate 81 78 81 Respiratory 16 13 13 Rate Blood Pressure 109/62 109/62 109/62 O2 Sat by Pulse 97 Oximetry 05/25/21 05/25/21 05/25/21 16:51 17:00 17:11 Temperature Pulse Rate 86 95 H 99 H Respiratory 22 16 16 Rate Blood Pressure 109/62 119/53 119/53 O2 Sat by Pulse 94 94 91 Oximetry 05/25/21 05/25/21 05/25/21 17:21 17:31 18:43 Temperature 98.8 F Pulse Rate 89 82 86 Respiratory 16 15 16 Rate Blood Pressure 119/53 119/53 109/71 O2 Sat by Pulse 97 98 93 Oximetry 05/25/21 05/26/21 23:05 00:02 Temperature 98.7 F Pulse Rate 86 Respiratory 16 Rate Blood Pressure 104/69 O2 Sat by Pulse 91 97 Oximetry General appearance: Present: no acute distress, well-nourished - EENT Eyes: PERRL, EOM intact ENT: hearing intact, clear oral mucosa Ears: bilateral: normal - Neck Neck: supple, normal ROM - Respiratory Respiratory effort: normal Respiratory: bilateral: CTA - Breasts Breasts: normal - Cardiovascular Rhythm: regular Heart Sounds: Present: S1 & S2. Absent: gallop, rub Extremities: pulses intact, No edema, normal color, Full ROM - Gastrointestinal General gastrointestinal: Present: soft, non-tender, non-distended, normal bowel sounds - Genitourinary Female genitourinary: normal - Integumentary Integumentary: clear, warm, dry - Musculoskeletal Musculoskeletal: 1, strength equal bilaterally - Neurologic Neurologic: moves all extremities - Psychiatric Psychiatric: memory intact, appropriate mood/affect, intact judgment & insight - Labs CBC & Chem 7: 05/25/21 04:19 05/25/21 04:19 Labs: Abnormal lab results 05/25/21 Range/Units 04:19 Carbon Dioxide 21 L (22-30) mmol/L BUN 19 H (7-17) mg/dL Creatinine 1.9 H D (0.6-1.2) mg/dL Glucose 142 H (65-100) mg/dL Albumin 3.8 L (3.9-5) g/dL HEART Score - HEART Score Troponin: Troponin T < 0.010 ng/mL (0.00-0.029) 05/24/21 14:22
[2021-05-26] MEDS: FAMOTIDINE 20 MG TAB PO SCH (09:33)
[2021-05-26] MEDS ORDERED: FLU VACC QUAD 2021-22(6MOS UP)/PF 60 MCG/0.5 ML SYRINGE IM ONE (12:00)
[2021-05-26] MEDS: ACETAMINOPHEN 325 MG TAB PO PRN (12:22)
[2021-05-27] MEDS: ACETAMINOPHEN 325 MG TAB PO PRN (03:00)
--- NOTE | 2021-05-27 08:57 | Progress Note ---
Assessment and Plan - Patient Problems (1) Acute CVA (cerebrovascular accident) Current Visit: Yes Status: Acute Plan to address problem: Patient is status post CVA There is improvement from 0/5 power to 2+/5 power Admit to ICU (2) Received intravenous tissue plasminogen activator (tPA) in emergency department Current Visit: Yes Status: Acute Plan to address problem: Patient received TPA in the emergency room No complications. There is increased bruising for the venipuncture sites (3) Coronary artery disease Current Visit: Yes Status: Chronic Qualifiers: Coronary Disease-Associated Artery/Lesion type: [place] artery Associated angina: without angina Plan to address problem: Continue Plavix (4) Discharge planning issues Current Visit: No Status: Acute (5) HTN (hypertension) Current Visit: No Status: Chronic Qualifiers: Hypertension type: primary hypertension Qualified Code(s): I10 - Essential (primary) hypertension Plan to address problem: Continue antihypertensives and adjust medications (6) Seizure disorder Current Visit: No Status: Chronic Plan to address problem: Continue Keppra (7) DVT prophylaxis Current Visit: Yes Status: Acute Plan to address problem: Patient had TPA No heparin till tomorrow (8) Advance care planning Current Visit: Yes Status: Acute Subjective Date of service: 05/26/21 Objective - Constitutional Vitals: Vital Signs - 12hr 05/26/21 05/27/21 05/27/21 22:00 00:05 04:25 Temperature 98.1 F Pulse Rate 71 Respiratory 18 Rate Blood Pressure 127/59 137/77 O2 Sat by Pulse 93 94 Oximetry General appearance: Present: no acute distress, well-nourished - EENT Eyes: PERRL, EOM intact ENT: hearing intact, clear oral mucosa Ears: bilateral: normal - Neck Neck: supple, normal ROM - Respiratory Respiratory effort: normal Respiratory: bilateral: CTA - Breasts Breasts: normal - Cardiovascular Rhythm: regular Heart Sounds: Present: S1 & S2. Absent: gallop, rub Extremities: pulses intact, No edema, normal color, Full ROM - Gastrointestinal General gastrointestinal: Present: soft, non-tender, non-distended, normal bowel sounds - Genitourinary Female genitourinary: normal - Integumentary Integumentary: clear, warm, dry - Musculoskeletal Musculoskeletal: 1, strength equal bilaterally - Neurologic Neurologic: moves all extremities - Psychiatric Psychiatric: memory intact, appropriate mood/affect, intact judgment & insight - Labs CBC & Chem 7: 05/25/21 04:19 05/25/21 04:19 HEART Score - HEART Score Troponin: Troponin T < 0.010 ng/mL (0.00-0.029) 05/24/21 14:22
--- NOTE | 2021-05-27 08:57 | Progress Note ---
Assessment and Plan - Patient Problems (1) Acute CVA (cerebrovascular accident) Current Visit: Yes Status: Acute Plan to address problem: Patient is status post CVA There is improvement from 0/5 power to 3+/5 power Downgrade to Telemetry (2) Received intravenous tissue plasminogen activator (tPA) in emergency department Current Visit: Yes Status: Acute Plan to address problem: Patient received TPA in the emergency room No complications. There is increased bruising for the venipuncture sites (3) Coronary artery disease Current Visit: Yes Status: Chronic Qualifiers: Coronary Disease-Associated Artery/Lesion type: [place] artery Associated angina: without angina Plan to address problem: Continue Plavix (4) Discharge planning issues Current Visit: No Status: Acute (5) HTN (hypertension) Current Visit: No Status: Chronic Qualifiers: Hypertension type: primary hypertension Qualified Code(s): I10 - Essential (primary) hypertension Plan to address problem: Continue antihypertensives and adjust medications (6) Seizure disorder Current Visit: No Status: Chronic Plan to address problem: Continue Keppra (7) DVT prophylaxis Current Visit: Yes Status: Acute Plan to address problem: Patient had TPA No heparin till tomorrow (8) Advance care planning Current Visit: Yes Status: Acute Plan to address problem: Patient education conducted, care plan discussed, diagnosis discussed, patient i s full code, patient acknowledges understanding and agreement with care plan. +30 minutes. Subjective Date of service: 05/25/21 Principal diagnosis: Acute CVA Interval history: 61-year-old female with history of cerebrovascular accident in the past, hypertension, coronary artery disease, status post brain resection tumor and seizure disorder comes in for right-sided weakness and aphasia history at 9:44 AM. Daughter noticed her fall when she was trying to get up and patient was also aphasic. Patient called her daughter saying that she is probably having a stroke. Daughter called 911 immediately. No seizures. The patient in the emergency room patient was given TPA as patient was in the window. Of acute stroke protocol. For TPA right-sided weakness has improved to some extent after the TPA. Initially the power was 5/5 power 05/25/21 Rt sise 3/5 power Some improvement Objective - Constitutional Vitals: Vital Signs - 12hr 05/26/21 05/27/21 05/27/21 22:00 00:05 04:25 Temperature 98.1 F Pulse Rate 71 Respiratory 18 Rate Blood Pressure 127/59 137/77 O2 Sat by Pulse 93 94 Oximetry General appearance: Present: no acute distress, well-nourished - EENT Eyes: PERRL, EOM intact ENT: hearing intact, clear oral mucosa Ears: bilateral: normal - Neck Neck: supple, normal ROM - Respiratory Respiratory effort: normal Respiratory: bilateral: CTA - Breasts Breasts: normal - Cardiovascular Heart rate: 68 Rhythm: regular Heart Sounds: Present: S1 & S2. Absent: gallop, rub Extremities: pulses intact, No edema, normal color, Full ROM - Gastrointestinal General gastrointestinal: Present: soft, non-tender, non-distended, normal bowel sounds - Genitourinary Female genitourinary: normal - Integumentary Integumentary: clear, warm, dry - Musculoskeletal Musculoskeletal: 1, strength equal bilaterally - Neurologic Neurologic: moves all extremities - Psychiatric Psychiatric: memory intact, appropriate mood/affect, intact judgment & insight - Labs CBC & Chem 7: 05/25/21 04:19 05/25/21 04:19 HEART Score - HEART Score Troponin: Troponin T < 0.010 ng/mL (0.00-0.029) 05/24/21 14:22
[2021-05-27] MEDS: levETIRAcetam 500 MG/5 ML ORAL LIQD PO SCH ×2 (10:06→22:24)
[2021-05-27] MEDS: FAMOTIDINE 20 MG TAB PO SCH (10:06)
--- NOTE | 2021-05-27 14:36 | Consultation ---
History of Present Illness Consult date: 05/27/21 Reason for Consult: CVA Chief complaint: The patient is evaluated for acute onset of Right sided weakness, there is no seizures. Some Improvement since the last 24 hours . No Headaches , the patient has a defibrillator . Medications and Allergies Allergies Allergy/AdvReac Type Severity Reaction Status Date / Time amlodipine Allergy Hives Verified 05/27/21 09:26 latex Allergy Rash Verified 05/27/21 09:26 Home Medications Medication Instructions Recorded Confirmed Last Taken Type Atorvastatin [Lipitor] 40 mg PO DAILY 06/27/13 05/26/21 05/23/21 History Clopidogrel [Plavix] 75 mg PO DAILY 06/27/13 05/26/21 05/23/21 History lamoTRIgine [LaMICtal] 100 mg PO BID 06/27/13 05/26/21 05/24/21 History levETIRAcetam [Keppra TAB] 1,500 mg PO BID 06/27/13 05/26/21 05/24/21 History Aspirin [Aspirin BABY CHEW TAB] 81 mg PO QDAY 09/04/13 05/26/21 05/24/21 History Ezetimibe [Zetia] 10 mg PO DAILY 05/26/21 05/26/21 05/23/21 History Furosemide [Lasix] 40 mg PO DAILY PRN 05/26/21 05/26/21 2 Weeks Ago History ~05/13/21 Hydralazine HCl 100 mg PO TID 05/26/21 05/26/21 05/24/21 History Nitroglycerin [Nitrostat] 0.4 mg SL Q5M PRN 05/26/21 05/26/21 2 Weeks Ago History ~05/13/21 Spironolactone [Aldactone] 25 mg PO DAILY 05/26/21 05/26/21 05/24/21 History carvediloL [Coreg] 25 mg PO DAILY 05/26/21 05/26/21 05/23/21 09:00 History lisinopriL [Zestril TAB] 40 mg PO QDAY 05/26/21 05/26/21 05/23/21 09:00 History Active Meds: Active Medications Acetaminophen (Acetaminophen 325 Mg Tab) 650 mg PO Q4H PRN PRN Reason: Pain MILD(1-3)/Fever >100.5/TRIANA Last Admin: 05/27/21 03:00 Dose: 650 mg Documented by: Famotidine (Famotidine 20 Mg Tab) 20 mg PO DAILY [facility] Last Admin: 05/27/21 10:06 Dose: 20 mg Documented by: Hydromorphone HCl (Hydromorphone 1 Mg/1 Ml Inj) 0.5 mg IV Q3H PRN PRN Reason: Pain , Severe (7-10) Last Admin: 05/25/21 00:35 Dose: 0.5 mg Documented by: Levetiracetam (Levetiracetam 500 Mg/5 Ml Oral Liqd) 1,500 mg PO BID [facility] Last Admin: 05/27/21 10:06 Dose: 1,500 mg Documented by: Metoclopramide HCl (Metoclopramide 10 Mg/2 Ml Inj) 10 mg IV Q6H PRN PRN Reason: Nausea And Vomiting Ondansetron HCl (Ondansetron 4 Mg/2 Ml Inj) 4 mg IV Q8H PRN PRN Reason: Nausea And Vomiting Last Admin: 05/25/21 00:36 Dose: 4 mg Documented by: Oxycodone/Acetaminophen (Oxycodone /Acetaminophen 5-325mg Tab) 1 tab PO Q6H PRN PRN Reason: Pain, Moderate (4-6) Last Admin: 05/27/21 10:07 Dose: 1 tab Documented by: Sodium Chloride (Sodium Chloride 0.9% 10 Ml Flush Syringe) 10 ml IV BID [facility] Last Admin: 05/27/21 10:08 Dose: 10 ml Documented by: Sodium Chloride (Sodium Chloride 0.9% 10 Ml Flush Syringe) 10 ml IV PRN PRN PRN Reason: LINE FLUSH Last Admin: 05/25/21 00:35 Dose: 10 ml Documented by: Sodium Chloride (Sodium Chloride 0.9% 10 Ml Flush Syringe) 10 ml IV PRN PRN PRN Reason: LINE FLUSH Physical Examination - Vital Signs Vital Signs: Vital Signs Temp Pulse Resp BP Pulse Ox 98.8 F 81 18 153/88 98 05/24/21 11:30 05/24/21 11:30 05/24/21 11:30 05/24/21 11:30 05/24/21 11:30 - Physical Exam Narrative exam: The patient has weakness in the right upper and extremity , There is drift , gait not tested . Results - Laboratory Findings CBC and BMP: 05/25/21 04:19 05/25/21 04:19 Abnormal Lab Findings: Abnormal Labs 05/24/21 05/24/21 05/24/21 11:43 11:43 11:43 [place] % (Auto) 8.1 H Thrombin Time 14.7 L Sodium 135 L Carbon Dioxide BUN Creatinine Glucose 125 H Albumin 05/24/21 05/25/21 14:22 04:19 [place] % (Auto) 7.5 H Thrombin Time Sodium Carbon Dioxide 21 L BUN 19 H Creatinine 1.9 H D Glucose 142 H Albumin 3.8 L Assessment and Plan 1. CVA ( seems likely needs PT and OT ). 2. No change in Medications . 3. Needs a Out patient follow up in 2 weeks . 4. Continue Keppra /Lamotrigine . 5. Reviewed All Scans . Dr. Flores
--- NOTE | 2021-05-27 15:05 | Event Note ---
Date: 05/27/21 MRI brain could not be done because of patient having defibrillator +
--- NOTE | 2021-05-27 15:06 | Progress Note ---
Assessment and Plan - Patient Problems (1) Acute CVA (cerebrovascular accident) Current Visit: Yes Status: Acute Plan to address problem: Patient is status post CVA There is improvement from 0/5 power to 3+/5 power Downgrade to Telemetry Acute rehab/subacute rehab (2) Received intravenous tissue plasminogen activator (tPA) in emergency department Current Visit: Yes Status: Acute Plan to address problem: Patient received TPA in the emergency room No complications. There is increased bruising for the venipuncture sites (3) Coronary artery disease Current Visit: Yes Status: Chronic Qualifiers: Coronary Disease-Associated Artery/Lesion type: [place] artery Associated angina: without angina Plan to address problem: Continue Plavix (4) Discharge planning issues Current Visit: No Status: Acute (5) HTN (hypertension) Current Visit: No Status: Chronic Qualifiers: Hypertension type: primary hypertension Qualified Code(s): I10 - Essential (primary) hypertension Plan to address problem: Continue antihypertensives and adjust medications (6) Seizure disorder Current Visit: No Status: Chronic Plan to address problem: Continue Keppra (7) DVT prophylaxis Current Visit: Yes Status: Acute Plan to address problem: Patient had TPA No heparin till tomorrow (8) Advance care planning Current Visit: Yes Status: Acute Plan to address problem: Patient education conducted, care plan discussed, diagnosis discussed, patient is full code, patient acknowledges understanding and agreement with care plan. +30 minutes. Subjective Date of service: 05/27/21 Principal diagnosis: Acute CVA Interval history: 61-year-old female with history of cerebrovascular accident in the past, hypertension, coronary artery disease, status post brain resection tumor and seizure disorder comes in for right-sided weakness and aphasia history at 9:44 AM. Daughter noticed her fall when she was trying to get up and patient was also aphasic. Patient called her daughter saying that she is probably having a stroke. Daughter called 911 immediately. No seizures. The patient in the emergency room patient was given TPA as patient was in the window. Of acute stroke protocol. For TPA right-sided weakness has improved to some extent after the TPA. Initially the power was 5/5 power 05/25/21 Rt sise 3/5 power Some improvement May 26, 2021 Right-sided weakness persists MRI pending May 27, 2021 Right-sided weakness 3/5 power MRI could not be done because of the defibrillator Patient may be discharged to subacute rehab/acute rehab Objective - Constitutional Vitals: Vital Signs - 12hr 05/27/21 05/27/21 05/27/21 04:25 09:05 10:00 Temperature 98.1 F 98.0 F Pulse Rate 71 70 Respiratory 18 20 Rate Blood Pressure 137/77 151/86 O2 Sat by Pulse 94 93 96 Oximetry General appearance: Present: no acute distress, well-nourished - EENT Eyes: PERRL, EOM intact ENT: hearing intact, clear oral mucosa Ears: bilateral: normal - Neck Neck: supple, normal ROM - Respiratory Respiratory effort: normal Respiratory: bilateral: CTA - Breasts Breasts: normal - Cardiovascular Heart rate: 78 Rhythm: regular Heart Sounds: Present: S1 & S2. Absent: gallop, rub Extremities: pulses intact, No edema, normal color, Full ROM - Gastrointestinal General gastrointestinal: Present: soft, non-tender, non-distended, normal bowel sounds - Genitourinary Female genitourinary: normal - Integumentary Integumentary: clear, warm, dry - Musculoskeletal Musculoskeletal: strength equal bilaterally, right sided weakness - Neurologic Neurologic: CNII-XII intact, focal deficits (Right hemiparesis) - Psychiatric Psychiatric: memory intact, appropriate mood/affect, intact judgment & insight - Allied health notes Allied health notes reviewed: nursing, PT, case management - Labs CBC & Chem 7: 05/25/21 04:19 05/25/21 04:19 HEART Score - HEART Score Troponin: Troponin T < 0.010 ng/mL (0.00-0.029) 05/24/21 14:22
[2021-05-27] MEDS: EZETIMIBE 10 MG TAB PO SCH (18:38)
[2021-05-27] MEDS: carvediloL 25 MG TAB PO SCH (18:38)
[2021-05-27] MEDS: ASPIRIN 81 MG TAB CHEW PO SCH (18:38)
[2021-05-27] MEDS: CLOPIDOGREL 75 MG TAB PO SCH (18:38)
[2021-05-27] MEDS: lamoTRIgine 100 MG TAB PO SCH (22:24)
[2021-05-28 07:09] LABS: Chol/HDL Ratio 2.78 %
[2021-05-28] MEDS: EZETIMIBE 10 MG TAB PO SCH (11:23)
[2021-05-28] MEDS: CLOPIDOGREL 75 MG TAB PO SCH (11:24)
[2021-05-28] MEDS: lamoTRIgine 100 MG TAB PO SCH ×2 (11:25→22:37)
[2021-05-28] MEDS: carvediloL 25 MG TAB PO SCH (11:27)
[2021-05-28] MEDS: ASPIRIN 81 MG TAB CHEW PO SCH (11:27)
[2021-05-28] MEDS: FAMOTIDINE 20 MG TAB PO SCH (11:28)
--- NOTE | 2021-05-28 13:44 | Progress Note ---
Assessment and Plan Assessment and plan: 61-year-old female with history of cerebrovascular accident in the past, hypertension, coronary artery disease, status post brain resection tumor and seizure disorder comes in for right-sided weakness and aphasia history at 9:44 AM. Daughter noticed her fall when she was trying to get up and patient was also aphasic. Patient called her daughter saying that she is probably having a stroke. Daughter called 911 immediately. No seizures. The patient in the emergency room patient was given TPA as patient was in the window. Of acute stroke protocol. For TPA right-sided weakness has improved to some extent after the TPA. Initially the power was 5/5 power 05/25/21 Rt sise 3/5 power Some improvement May 26, 2021 Right-sided weakness persists MRI pending May 27, 2021 Right-sided weakness 3/5 power MRI could not be done because of the defibrillator Patient may be discharged to subacute rehab/acute rehab 05/28: Consult this morning on evaluation patient was still n.p.o. due to difficulty swallowing awaiting speech evaluation. Anticipate discharge in 24 hours. She follows with the neurologist that saw her in the hospital and will defer to them to decide if patient will benefit from adjustment of medications to include Eliquis. (1) Acute CVA (cerebrovascular accident) Current Visit: Yes Status: Acute Plan to address problem: Patient is status post CVA There is improvement from 0/5 power to 3+/5 power Downgrade to Telemetry Acute rehab/subacute rehab (2) Received intravenous tissue plasminogen activator (tPA) in emergency department Current Visit: Yes Status: Acute Plan to address problem: Patient received TPA in the emergency room No complications. There is increased bruising for the venipuncture sites (3) Coronary artery disease Current Visit: Yes Status: Chronic Qualifiers: Coronary Disease-Associated Artery/Lesion type: [place] artery Associated angina: without angina Plan to address problem: Continue Plavix (4) Discharge planning issues Current Visit: No Status: Acute (5) HTN (hypertension) Current Visit: No Status: Chronic Qualifiers: Hypertension type: primary hypertension Qualified Code(s): I10 - Essential (primary) hypertension Plan to address problem: Continue antihypertensives and adjust medications (6) Seizure disorder Current Visit: No Status: Chronic Plan to address problem: Continue Keppra (7) DVT prophylaxis Current Visit: Yes Status: Acute Plan to address problem: Patient had TPA No heparin till tomorrow (8) Advance care planning Current Visit: Yes Status: Acute Plan to address problem: Patient education conducted, care plan discussed, diagnosis discussed, patient is full code, patient acknowledges understanding and agreement with care plan. +30 minutes. History Interval history: Patient seen and examined she was concerned this morning that she could not eat eggs and has not been able to tolerate any oral intake. She has had significant health challenges and is on aspirin and Plavix outpatient. Hospitalist Physical - Physical exam Narrative exam: General appearance: Present: no acute distress, well-nourished - EENT Eyes: PERRL, EOM intact ENT: hearing intact, clear oral mucosa Ears: bilateral: normal - Neck Neck: supple, normal ROM - Respiratory Respiratory effort: normal Respiratory: bilateral: CTA - Breasts Breasts: normal - Cardiovascular Heart rate: 78 Rhythm: regular Heart Sounds: Present: S1 & S2. Absent: gallop, rub Extremities: pulses intact, No edema, normal color, Full ROM - Gastrointestinal General gastrointestinal: Present: soft, non-tender, non-distended, normal bowel sounds - Genitourinary Female genitourinary: normal - Integumentary Integumentary: clear, warm, dry - Musculoskeletal Musculoskeletal: strength equal bilaterally, right sided weakness - Neurologic Neurologic: CNII-XII intact, focal deficits (Right lower hemiparesis) - Psychiatric Psychiatric: memory intact, appropriate mood/affect, intact judgment & insight - Allied health notes Allied health notes reviewed: nursing, PT, case management - Constitutional Vitals: Temp Pulse Resp BP Pulse Ox 97.9 F 66 20 151/93 96 05/28/21 11:55 05/28/21 11:55 05/28/21 11:55 05/28/21 11:55 05/28/21 11:55 General appearance: Present: no acute distress, well-nourished HEART Score - HEART Score Troponin: Troponin T < 0.010 ng/mL (0.00-0.029) 05/24/21 14:22 Results - Labs CBC & Chem 7: 05/25/21 04:19 05/25/21 04:19 Labs: Laboratory Last Values WBC 7.4 K/mm3 (4.5-11.0) 05/25/21 04:19 RBC 4.49 M/mm3 (3.65-5.03) 05/25/21 04:19 Hgb 12.9 gm/dl (10.1-14.3) 05/25/21 04:19 Hct 41.1 % (30.3-42.9) 05/25/21 04:19 MCV 92 fl (79-97) 05/25/21 04:19 MCH 29 pg (28-32) 05/25/21 04:19 MCHC 31 % (30-34) 05/25/21 04:19 RDW 14.7 % (13.2-15.2) 05/25/21 04:19 Plt Count 240 K/mm3 (140-440) 05/25/21 04:19 Lymph % (Auto) 22.5 % (13.4-35.0) 05/25/21 04:19 [place] % (Auto) 6.9 % (0.0-7.3) 05/25/21 04:19 Eos % (Auto) 0.5 % (0.0-4.3) 05/25/21 04:19 Baso % (Auto) 0.2 % (0.0-1.8) 05/25/21 04:19 Lymph # (Auto) 1.7 K/mm3 (1.2-5.4) 05/25/21 04:19 [place] # (Auto) 0.5 K/mm3 (0.0-0.8) 05/25/21 04:19 Eos # (Auto) 0.0 K/mm3 (0.0-0.4) 05/25/21 04:19 Baso # (Auto) 0.0 K/mm3 (0.0-0.1) 05/25/21 04:19 Seg Neutrophils % 69.9 % (40.0-70.0) 05/25/21 04:19 Seg Neutrophils # 5.2 K/mm3 (1.8-7.7) 05/25/21 04:19 PT 13.8 Sec. (12.2-14.9) 05/24/21 11:43 INR 0.96 (0.87-1.13) 05/24/21 11:43 APTT 28.6 Sec. (24.2-36.6) 05/24/21 11:43 Thrombin Time 14.7 Sec. (15.1-19.6) L 05/24/21 11:43 Sodium 138 mmol/L (137-145) 05/25/21 04:19 Potassium 4.0 mmol/L (3.6-5.0) 05/25/21 04:19 Chloride 100.1 mmol/L (98-107) 05/25/21 04:19 Carbon Dioxide 21 mmol/L (22-30) L 05/25/21 04:19 Anion Gap 21 mmol/L 05/25/21 04:19 BUN 19 mg/dL (7-17) H 05/25/21 04:19 Creatinine 1.9 mg/dL (0.6-1.2) H D 05/25/21 04:19 Estimated GFR 32 ml/min 05/25/21 04:19 BUN/Creatinine Ratio 10 % 05/25/21 04:19 Glucose 142 mg/dL (65-100) H 05/25/21 04:19 Calcium 9.2 mg/dL (8.4-10.2) 05/25/21 04:19 Total Bilirubin 0.70 mg/dL (0.1-1.2) 05/25/21 04:19 AST 16 units/L (5-40) 05/25/21 04:19 ALT 32 units/L (7-56) 05/25/21 04:19 Alkaline Phosphatase 90 units/L (35-129) 05/25/21 04:19 Troponin T < 0.010 ng/mL (0.00-0.029) 05/24/21 14:22 Total Protein 7.5 g/dL (6.3-8.2) 05/25/21 04:19 Albumin 3.8 g/dL (3.9-5) L 05/25/21 04:19 Albumin/Globulin Ratio 1.0 % 05/25/21 04:19 Triglycerides 98 mg/dL (2-149) 05/28/21 04:34 Cholesterol 145 mg/dL (50-199) 05/28/21 04:34 LDL Cholesterol Direct 78 mg/dL (50-130) 05/28/21 04:34 HDL Cholesterol 52 mg/dL (40-59) 05/28/21 04:34 Cholesterol/HDL Ratio 2.78 % 05/28/21 04:34 Quiroz/IV: Voiding Method Toilet Active Medications - Current Medications Current Medications: Generic Name Dose Route Start Last Admin Trade Name Freq PRN Reason Stop Dose Admin Acetaminophen 650 mg 05/24/21 23:16 05/27/21 03:00 Acetaminophen 325 Mg Tab PO 650 mg Q4H PRN Administration Pain MILD(1-3)/Fever >100.5/TRIANA Aspirin 81 mg 05/27/21 19:00 05/28/21 11:27 Aspirin 81 Mg Tab Chew PO 81 mg QDAY KESHIA Administration Carvedilol 25 mg 05/27/21 19:00 05/28/21 11:27 Carvedilol 25 Mg Tab PO 25 mg DAILY KESHIA Administration Clopidogrel Bisulfate 75 mg 05/27/21 19:00 05/28/21 11:24 Clopidogrel 75 Mg Tab PO 75 mg QDAY KESHIA Administration Ezetimibe 10 mg 05/27/21 19:00 05/28/21 11:23 Ezetimibe 10 Mg Tab PO 10 mg QDAY KESHIA Administration Famotidine 20 mg 05/27/21 10:00 05/28/21 11:28 Famotidine 20 Mg Tab PO 20 mg DAILY KESHIA Administration Hydromorphone HCl 0.5 mg 05/24/21 21:19 05/25/21 00:35 Hydromorphone 1 Mg/1 Ml Inj IV 0.5 mg Q3H PRN Administration Pain , Severe (7-10) Lamotrigine 100 mg 05/27/21 22:00 05/28/21 11:25 Lamotrigine 100 Mg Tab PO 100 mg BID KESHIA Administration Levetiracetam 1,500 mg 05/27/21 10:00 05/27/21 22:24 Levetiracetam 500 Mg/5 Ml Oral Liqd PO 1,500 mg BID KESHIA Administration Metoclopramide HCl 10 mg 05/24/21 23:20 Metoclopramide 10 Mg/2 Ml Inj IV Q6H PRN Nausea And Vomiting Ondansetron HCl 4 mg 05/24/21 23:16 05/25/21 00:36 Ondansetron 4 Mg/2 Ml Inj IV 4 mg Q8H PRN Administration Nausea And Vomiting Oxycodone/Acetaminophen 1 tab 05/24/21 23:20 05/27/21 10:07 Oxycodone /Acetaminophen 5-325mg Tab PO 1 tab Q6H PRN Administration Pain, Moderate (4-6) Sodium Chloride 10 ml 05/25/21 10:00 05/27/21 22:24 Sodium Chloride 0.9% 10 Ml Flush Syringe IV 10 ml BID KESHIA Administration Sodium Chloride 10 ml 05/24/21 23:16 05/25/21 00:35 Sodium Chloride 0.9% 10 Ml Flush Syringe IV 10 ml PRN PRN Administration LINE FLUSH
[2021-05-28] MEDS: levETIRAcetam 500 MG/5 ML ORAL LIQD PO SCH (15:32)
--- NOTE | 2021-05-28 16:06 | Vascular Lab Report ---
DUPLEX DOPPLER ULTRASOUND CAROTID, BILATERAL INDICATION / CLINICAL INFORMATION: stroke. COMPARISON: CTA neck 05/24/2021. FINDINGS: RIGHT CAROTID: No significant atherosclerotic plaque. - PLAQUE ESTIMATE (%): < 50% - CCA velocity: 71 cm/sec. - ICA peak systolic velocity: 64 cm/sec. - ICA/CCA PSV Ratio: Less than 2. Right Vertebral Artery: Antegrade flow. LEFT CAROTID: No significant atherosclerotic plaque. - PLAQUE ESTIMATE (%): < 50% - CCA velocity: 61 cm/sec. - ICA peak systolic velocity: 69 cm/sec. - ICA/CCA PSV Ratio: Less than 2. Left Vertebral Artery: Antegrade flow. IMPRESSION: 1. Right Internal Carotid Artery: Normal. No stenosis. 2. Left Internal Carotid Artery: Normal. No stenosis. Velocity criteria are extrapolated from diameter data as defined by the Society of Radiologists in [facility] Consensus Conference, Radiology 2003; 229;[id number]. NO STENOSIS (NORMAL) - Plaque = none; ICA PSV < 125 cm/sec; ICA/CCA PSV Ratio < 2.0 <50% STENOSIS - Plaque < 50%; ICA PSV < 125 cm/sec; ICA/CCA PSV Ratio < 2.0 50-69% STENOSIS - Plaque > 50%; ICA PSV = 125-230 cm/sec; ICA/CCA PSV Ratio = 2.0-4.0 >70% BUT <100% STENOSIS - Plaque > 50%; ICA PSV > 230 cm/sec; ICA/CCA PSV Ratio > 4.0 NEAR OCCLUSION - Plaque = visible lumen; ICA PSV = high/low/none; ICA/CCA PSV Ratio = variable TOTAL OCCLUSION - Plaque = no lumen; ICA PSV = none; ICA/CCA PSV Ratio = N/A Scribed by: Ivon Yadav RDMS, RVT Scribed: 05/28/2021 1:38 PM I have reviewed the images, agree with this report, and edited this report as needed. Signer Name: Rome Goyal MD Signed: 05/28/2021 4:01 PM Workstation Name: [id number]
[2021-05-28] MEDS: levETIRAcetam 500 MG TAB PO SCH (22:37)
--- NOTE | 2021-05-29 09:23 | Discharge Summary ---
Providers - Providers Date of Admission: 05/24/21 14:15 Attending physician: ROSARIO GALICIA MD 05/24/21 23:20 Consult to Physician [CONS] Routine Comment: Consulting Provider: MORGAN RICHARDSON Physician Instructions: Reason For Exam: Acute CVA 05/27/21 10:42 Physical Therapy Evaluation and Treat [CONS] Urgent Comment: Reason For Exam: To assess mobility status, 05/27/21 10:43 Occupational Therapy Evaluate and Treat [CONS] Urgent Comment: Reason For Exam: To access ADL consult 05/27/21 13:52 Occupational Therapy Evaluate and Treat [CONS] Routine Comment: Reason For Exam: Neuro deficits Physical Therapy Evaluation and Treat [CONS] Routine Comment: Reason For Exam: Neuro deficits 05/28/21 09:13 Speech Therapy Evaluation and Treat [CONS] Routine Reason For Exam: cva Primary care physician: [employer] Hospitalization Reason for admission: CVA Condition: Stable Hospital course: 61-year-old female with history of cerebrovascular accident in the past, hypertension, coronary artery disease, status post brain resection tumor and seizure disorder comes in for right-sided weakness and aphasia history at 9:44 AM. Daughter noticed her fall when she was trying to get up and patient was also aphasic. Patient called her daughter saying that she is probably having a stroke. Daughter called 911 immediately. No seizures. The patient in the emergency room patient was given TPA as patient was in the window. Of acute stroke protocol. For TPA right-sided weakness has improved to some extent after the TPA. Initially the power was 5/5 power 05/25/21 Rt sise 3/5 power Some improvement May 26, 2021 Right-sided weakness persists MRI pending May 27, 2021 Right-sided weakness 3/5 power MRI could not be done because of the defibrillator Patient may be discharged to subacute rehab/acute rehab 05/28: Consult this morning on evaluation patient was still n.p.o. due to difficulty swallowing awaiting speech evaluation. Anticipate discharge in 24 hours. She follows with the neurologist that saw her in the hospital and will defer to them to decide if patient will benefit from adjustment of medications to include Eliquis. This was discussed with the neurologist (1) Acute CVA (cerebrovascular accident) Current Visit: Yes Status: Acute Plan to address problem: Patient is status post CVA There is improvement from 0/5 power to 3+/5 power Downgrade to Telemetry Acute rehab/subacute rehab (2) Received intravenous tissue plasminogen activator (tPA) in emergency department Current Visit: Yes Status: Acute Plan to address problem: Patient received TPA in the emergency room No complications. There is increased bruising for the venipuncture sites (3) Coronary artery disease Current Visit: Yes Status: Chronic Qualifiers: Coronary Disease-Associated Artery/Lesion type: [place] artery Associated angina: without angina Plan to address problem: Continue Plavix (4) Discharge planning issues Current Visit: No Status: Acute (5) HTN (hypertension) Current Visit: No Status: Chronic Qualifiers: Hypertension type: primary hypertension Qualified Code(s): I10 - Essential (primary) hypertension Plan to address problem: Continue antihypertensives and adjust medications (6) Seizure disorder Current Visit: No Status: Chronic Plan to address problem: Continue Keppra (7) DVT prophylaxis Current Visit: Yes Status: Acute Plan to address problem: Patient had TPA No heparin till tomorrow (8) Advance care planning Current Visit: Yes Status: Acute Plan to address problem: Patient education conducted, care plan discussed, diagnosis discussed, patient is full code, patient acknowledges understanding and agreement with care plan. +30 minutes. Disposition: 06 HOME HEALTH CARE SERVICE Final Discharge Diagnosis (Prints w/discharge instructions): Acute CVA Time spent for discharge: 35 minutes Core Measure Documentation - Palliative Care Palliative Care/ Comfort Measures: Not Applicable - Core Measures Any of the following diagnoses?: stroke - Stroke Discharge Requirements Statin for LDL = or >70 mg/dl on DC: Yes Anticoag for atrial fib/atrial flutter: Not Applicable Antithrombotic for ischemic stroke: Yes Exam - Physical Exam Narrative exam: General appearance: Present: no acute distress, well-nourished - EENT Eyes: PERRL, EOM intact ENT: hearing intact, clear oral mucosa Ears: bilateral: normal - Neck Neck: supple, normal ROM - Respiratory Respiratory effort: normal Respiratory: bilateral: CTA - Breasts Breasts: normal - Cardiovascular Heart rate: 78 Rhythm: regular Heart Sounds: Present: S1 & S2. Absent: gallop, rub Extremities: pulses intact, No edema, normal color, Full ROM - Gastrointestinal General gastrointestinal: Present: soft, non-tender, non-distended, normal bowel sounds - Genitourinary Female genitourinary: normal - Integumentary Integumentary: clear, warm, dry - Musculoskeletal Musculoskeletal: strength equal bilaterally, right sided weakness - Neurologic Neurologic: CNII-XII intact, focal deficits (Right lower hemiparesis) - Psychiatric Psychiatric: memory intact, appropriate mood/affect, intact judgment & insight - Allied health notes Allied health notes reviewed: nursing, PT, case management - Constitutional Vitals: Temp Pulse Resp BP Pulse Ox 97.9 F 105 H 18 146/82 97 05/29/21 09:09 05/29/21 09:09 05/29/21 09:09 05/29/21 09:09 05/29/21 09:09 Plan Activity: advance as tolerated, fall precautions Diet: low fat Special Instructions: record daily weights, record daily BP diary, record blood sugar diary, physical therapy, occupational therapy Follow up with: PRIMARY CAREMD [Primary Care Provider] - 7 Days SOHAM COFFMAN MD [Staff Physician] - 7 Days
[2021-05-29] MEDS: FAMOTIDINE 20 MG TAB PO SCH (11:12)
[2021-05-29] MEDS: CLOPIDOGREL 75 MG TAB PO SCH (11:12)
[2021-05-29] MEDS: levETIRAcetam 500 MG TAB PO SCH (11:12)
[2021-05-29] MEDS: ASPIRIN 81 MG TAB CHEW PO SCH (11:12)
[2021-05-29] MEDS: EZETIMIBE 10 MG TAB PO SCH (11:12)
[2021-05-29] MEDS: lamoTRIgine 100 MG TAB PO SCH (11:13)
[2021-05-29] MEDS: carvediloL 25 MG TAB PO SCH (11:13)
[2021-05-29 12:00] VITALS: BP 167/88
== END 2021-05-29 16:59 | disposition home or self-care (01) | DRG 63 ==
LOC: ED 11:27 → CC1 14:15 → 4A 05-25 15:00
PROVIDERS: ADMIT Internal Medicine; ATTEND Internal Medicine
DX: I63.9 Cerebral infarction, unspecified (principal); I10 Essential (primary) hypertension; I25.10 Atherosclerotic heart disease of native coronary artery without angina pectoris; E78.5 Hyperlipidemia, unspecified; G40.909 Epilepsy, unspecified, not intractable, without status epilepticus; Z20.822 Contact with and (suspected) exposure to COVID-19
CPT/HCPCS: 36415; 70450; 70496; 70498; 80053; 80061; 84484; 85025; 85610; 85670; 85730; 90686; 93005; 93306; 93880; 99285; G0378; Q0162; J1170; J1953; J2270; J2405; J2997; J7030; Q9967